=== PATIENT | male | born 1980 | race Caucasian/White ===

== ENCOUNTER 2019-12-06 15:20 | Emergency (ER) | payer OTHER, SELFPAY ==
[2019-12-06 15:20] VITALS: BP 160/88; PULSE 95; RESP 16; TEMP 37.1; O2SAT 99
--- NOTE | 2019-12-06 16:56 | ED.ANXIETY ---
HPI - Anxiety General Chief Complaint: Anxiety Stated Complaint: anxiety, panic attack Time Seen by Provider: 12/06/19 16:55 History of Present Illness HPI narrative: He has recently been diagnosed with panic attacks and took his first dose of lexapro today. Shortly after taking it he began having a panic attack. He says that he believes that it was because he has anxiety about taking medications. He reports that his psychiatrist said that he may need an anxiolytic until the lexapro takes effect. Related Data Home Medications Medication Instructions Recorded Confirmed escitalopram oxalate [Lexapro] mg 12/06/19 Allergies Allergy/AdvReac Type Severity Reaction Status Date / Time No Known Allergies Allergy Verified 12/06/19 15:38 Review of Systems Review of Systems: All systems reviewed & are unremarkable except as noted in HPI and below Constitutional: Constitutional: Denies chills and Denies fever(s) Cardiovascular: Cardiovascular: Reports chest pain Respiratory: Respiratory: Reports dyspnea Neurologic: Reports dizziness Psychiatric: Psychiatric: Reports anxiety Exam Const: General: healthy appearing, no acute distress and alert Orientation/consciousness: patient oriented x3 HENMT: Head: normal to inspection Neck: Neck: normal visual inspection and no lymphadenopathy Chest: Chest palpation & inspection: no tenderness Resp: Effort & Inspection: normal respiratory effort Auscultation: clear to auscultation bilaterally, no rales, no rhonchi and no wheezes Cardio: Jugular venous distension: no JVD Rate: regular rate Rhythm: regular rhythm Heart sounds: no murmurs GI: Inspection: non-distended GI Palp: Yes Soft to palpation and No Tenderness to palpation present (GI) Skin: General skin exam: normal color Neuro: General: patient oriented x3 and moves all extremities Speech: normal speech Extrem: General: no edema Psych: Appearance: well kempt Affect: Anxious affect present Course Vital Signs Vital signs: Vital Signs Temperature 37.1 C 12/06/19 15:20 Pulse Rate 95 12/06/19 15:20 Respiratory Rate 16 12/06/19 15:20 Blood Pressure 160/88 H 12/06/19 15:20 Pulse Oximetry 99 12/06/19 15:20 Temperature 36.6 C 12/06/19 17:24 Pulse Rate 87 12/06/19 17:24 Respiratory Rate 16 12/06/19 17:24 Blood Pressure 145/72 H 07/31/20 17:24 Pulse Oximetry 100 12/06/19 17:24 MDM - Anxiety MDM Narrative Medical decision making narrative: I will prescribe him a few days worth of a long acting benzodiazapine. Medical Records Attestation: I reviewed the patient's medical records. Lab Data Attestation: I reviewed the patient's lab results. Discharge Plan Discharge Clinical Impression: Panic attack Patient Disposition: Home, Self-Care Condition: Stable Instructions: Panic Disorder (ED) Prescriptions: New clonazepam 0.5 mg tablet 0.5 mg PO BID PRN (Reason: anxiety) Qty: 10 RF: 0 No Action escitalopram oxalate [Lexapro] 5 mg Tablet RF: 0 Follow-up/Referrals: Arnold Maldonado MD [Primary Care Provider] - Discharge Date/Time: 12/06/19 17:25
[2019-12-06 17:24] VITALS: BP 145/72; PULSE 87; RESP 16; TEMP 36.6; O2SAT 100
== END 2019-12-06 17:25 | disposition home or self-care (01) ==
PROVIDERS: Emergency Provider Emergency Medicine; PCP Emergency Medicine
DX: F41.0 Panic disorder [episodic paroxysmal anxiety] (principal)
CPT/HCPCS: 99283

== ENCOUNTER 2019-12-06 19:03 | Emergency (ER) | payer OTHER, SELFPAY ==
[2019-12-06 19:11] VITALS: BP 155/88; PULSE 99; RESP 18; TEMP 37.1; O2SAT 100
--- NOTE | 2019-12-06 19:13 | ECG_ITS ---
Measurements Intervals [place] Rate: 89 P: 74 [place]: 137 QRS: 59 QRSD: 106 T: 22 QT: 351 QTc: 427 Interpretive Statements SINUS RHYTHM POSSIBLE LEFT ATRIAL ENLARGEMENT BORDERLINE ST-T WAVE ABNORMALITY- INFERIOR LEADS BORDERLINE ECG Electronically Signed On 12-06-2019 19:28:12 CDT by Paul Williamson D.O.
[2019-12-06 19:32] VITALS: BP 127/72; PULSE 83; RESP 17; O2SAT 99
--- NOTE | 2019-12-06 20:21 | ED.ARRPALP ---
HPI - Arrhythmia/Palpitations General Chief Complaint: Arrhythmia/Palpitations Stated Complaint: anxiety Time Seen by Provider: 12/06/19 20:03 Source: patient Mode of arrival: ambulatory Limitations: no limitations History of Present Illness HPI narrative: This patient is a 39 year old male who presents for evaluation of a panic attack. He states he has been dealing with panic attacks over the past few months. He states has a sense of doom. He denies having chest pain, sob, nausea or vomiting. He was evaluated earlier today in ER and he was prescribed Klonopin. He states he has filled the prescription but he has not taken the medication. He was discharged 3 hours ago but he states he started feeling the sense that something was wrong again. He states he feels better. He denies having chest pain or sob during today's earlier visit. Related Data Home Medications Medication Instructions Recorded Confirmed escitalopram oxalate [Lexapro] mg 12/06/19 Allergies Allergy/AdvReac Type Severity Reaction Status Date / Time No Known Allergies Allergy Verified 12/06/19 19:14 Review of Systems Review of Systems: All systems reviewed & are unremarkable except as noted in HPI and below PMFSH Social History Social History (Updated 12/06/19 @ 20:27 by Jazlyn Kaplan MD) Smoking status: Current every day smoker Alcohol intake: former Alcohol use details: last drink of alcohol in June Substance use: never Gender identity (if verbalized by the patient): Male Exam Narrative: Exam Narrative: GENERAL: Well-appearing, well-nourished, and in no acute distress. HEAD: Normocephalic, atraumatic EYES: PERRLA and EOMI, conjunctiva clear without discharge EARS: TM's clear bilaterally without erythema or dullness NOSE: Nares clear, no rhinorrhea or epistaxis THROAT:Mucous membranes moist, Oropharynx normal without erythema, exudate, peritonsillar swelling or fluctuance NECK: Supple, without lymphadenopathy or mass RESPIRATORY: No respiratory distress, Airway patent, Respirations non-labored, Clear to auscultation without rales, rhonchi or wheeze HEART: Regular rate and rhythm. No murmur heard. Normal peripheral pulses. ABDOMEN: Soft, nontender, nondistended, normal active bowel sounds. No masses. No rebound or guarding, No organomegaly. EXTREMITIES: No edema, normal strength with full range of motion. SKIN: Warm, dry, normal color without rash NEURO: Alert and oriented x3. CN 2-12 grossly intact. No focal deficits. PSYCH: Normal mood and affect. Course Reevaluation(s) Reevaluation #1: I have discussed with patient I reviewed earlier visit. He states he is not having chest pain or sob so he would like to defer labs. Date: 12/06/19 Time: 20:28 Vital Signs Vital signs: Vital Signs Temperature 98.7 F 12/06/19 19:11 Pulse Rate 99 12/06/19 19:11 Respiratory Rate 18 12/06/19 19:11 Blood Pressure 155/88 H 12/06/19 19:11 Pulse Oximetry 100 12/06/19 19:11 Temperature 98.7 F 12/06/19 19:11 Pulse Rate 75 12/06/19 20:42 Respiratory Rate 17 12/06/19 20:42 Blood Pressure 119/73 12/06/19 20:42 Pulse Oximetry 97 12/06/19 20:42 MDM - Arrhythmia/Palpitations ECG Data EKG #1: ECG completion date: 12/06/19 ECG completion time: 19:22 EKG Interpretation: normal rate (89), sinus rhythm, no ST changes and NL axis Discharge Plan Discharge Clinical Impression: Panic attack Patient Disposition: Home, Self-Care Condition: Stable Instructions: Antibiotic Form, Anxiety (ED), Panic Attack (ED) Prescriptions: No Action escitalopram oxalate [Lexapro] 5 mg Tablet RF: 0 clonazepam 0.5 mg tablet 0.5 mg PO BID PRN (Reason: anxiety) Qty: 10 RF: 0 Follow-up/Referrals: Arnold Maldonado MD [Primary Care Provider] - Discharge Date/Time: 12/06/19 20:43
[2019-12-06 20:42] VITALS: BP 119/73; PULSE 75; RESP 17; O2SAT 97
== END 2019-12-06 20:43 | disposition home or self-care (01) ==
PROVIDERS: Emergency Provider General Practice; PCP Emergency Medicine
DX: F41.0 Panic disorder [episodic paroxysmal anxiety] (principal); F17.200 Nicotine dependence, unspecified, uncomplicated; R94.31 Abnormal electrocardiogram [ECG] [EKG]
CPT/HCPCS: 93005; 99283

== ENCOUNTER 2020-01-23 09:10 | Emergency (ER) | payer OTHER, SELFPAY ==
[2020-01-23 09:17] VITALS: BP 140/81; PULSE 106; RESP 20; TEMP 36.1; O2SAT 99
--- NOTE | 2020-01-23 09:22 | ECG_ITS ---
Measurements Intervals [place] Rate: 100 P: 85 SD: 135 QRS: 69 QRSD: 101 T: 5 QT: 320 QTc: 414 Interpretive Statements SINUS TACHYCARDIA POSSIBLE LEFT ATRIAL ENLARGEMENT BORDERLINE ST-T WAVE ABNORMALITY- INF/LAT LEADS BASELINE ARTIFACT- I, AVR, V1 BORDERLINE ECG Electronically Signed On 01-23-2020 10:01:14 CDT by Paul Williamson D.O.
[2020-01-23 09:31] VITALS: PULSE 101
--- NOTE | 2020-01-23 09:34 | PC.NURSE ---
ERP at bedside assessing patient.
--- NOTE | 2020-01-23 09:45 | ED.ANXIETY ---
HPI - Anxiety General Chief Complaint: Anxiety Stated Complaint: adverse rxn to meds Time Seen by Provider: 01/23/20 09:21 History of Present Illness HPI narrative: Sudden onset of racing heart rate, palpitations, chest pain, and SOB. He feels better now and believes that he was having a panic attack. He has been having them more frequently recently. He is on lexapro, recently had dose reduced. Related Data Home Medications Medication Instructions Recorded Confirmed escitalopram oxalate [Lexapro] 5 mg DAILY 12/06/19 01/23/20 Allergies Allergy/AdvReac Type Severity Reaction Status Date / Time No Known Allergies Allergy Verified 12/06/19 19:14 Review of Systems Review of Systems: All systems reviewed & are unremarkable except as noted in HPI and below Constitutional: Constitutional: Denies chills and Denies fever(s) Cardiovascular: Cardiovascular: Reports chest pain and Reports rapid heart rate Respiratory: Respiratory: Reports dyspnea Gastrointestinal: Gastrointestinal: Denies abdominal pain and Denies nausea Neurologic: Reports dizziness and Reports numbness [facility] Social History Social History (Updated 12/06/19 @ 20:27 by Jazlyn Kaplan MD) Smoking status: Current every day smoker Alcohol intake: former Substance use: never Gender identity (if verbalized by the patient): Male Exam Const: General: healthy appearing, no acute distress and alert Orientation/consciousness: patient oriented x3 HENMT: Head: normal to inspection Neck: Neck: normal visual inspection and no lymphadenopathy Chest: Chest palpation & inspection: no tenderness Resp: Effort & Inspection: normal respiratory effort Auscultation: clear to auscultation bilaterally, no rales, no rhonchi and no wheezes Cardio: Jugular venous distension: no JVD Rate: regular rate Rhythm: regular rhythm Heart sounds: no murmurs GI: Inspection: non-distended GI Palp: Yes Soft to palpation and No Tenderness to palpation present (GI) Skin: General skin exam: normal color Neuro: General: patient oriented x3 and moves all extremities Speech: normal speech Extrem: General: no edema Psych: Appearance: well kempt Affect: normal affect and Anxious affect present Course Vital Signs Vital signs: Vital Signs Temperature 36.1 C L 01/23/20 09:17 Pulse Rate 106 H 01/23/20 09:17 Respiratory Rate 20 01/23/20 09:17 Blood Pressure 140/81 01/23/20 09:17 Pulse Oximetry 99 01/23/20 09:17 Temperature 36.1 C L 01/23/20 09:17 Pulse Rate 87 01/23/20 09:51 Respiratory Rate 15 01/23/20 09:51 Blood Pressure 133/83 01/23/20 09:51 Pulse Oximetry 98 01/23/20 09:51 MDM - Anxiety MDM Narrative Medical decision making narrative: Vitals reassuring. EKG unchanged from previous. Presentation consistent with panic attack. Discharge Plan Discharge Clinical Impression: Panic disorder Patient Disposition: Home, Self-Care Condition: Stable Instructions: Panic Disorder (ED) Prescriptions: No Action escitalopram oxalate [Lexapro] 5 mg Tablet 5 mg DAILY RF: 0 clonazepam 0.5 mg tablet 0.5 mg PO BID PRN (Reason: anxiety) Qty: 10 RF: 0 Follow-up/Referrals: Arnold Maldonado MD [Primary Care Provider] - Discharge Date/Time: 01/23/20 09:52
[2020-01-23 09:51] VITALS: BP 133/83; PULSE 87; RESP 15; O2SAT 98
== END 2020-01-23 09:52 | disposition home or self-care (01) ==
PROVIDERS: Emergency Provider Emergency Medicine; PCP Emergency Medicine
DX: F41.0 Panic disorder [episodic paroxysmal anxiety] (principal); F17.200 Nicotine dependence, unspecified, uncomplicated
CPT/HCPCS: 93005; 99283

== ENCOUNTER 2020-11-11 11:17 | Emergency (ER) | payer OTHER, SELFPAY ==
[2020-11-11 11:28] VITALS: BP 140/82; PULSE 104; RESP 16; TEMP 37.3; O2SAT 99
--- NOTE | 2020-11-11 11:43 | ED.URI ---
HPI - URI/Sore Throat General Chief Complaint: Upper Respiratory Infection Stated Complaint: CONGESTION/SORE THROAT/DRAINAGE Source: patient and RN notes reviewed Limitations: no limitations History of Present Illness HPI Narrative: The vaccinated patient -- a smoker/nondrinker with pets [cats]--presents with congestion. Patient states he has about a nearly weeklong history of scratchy throat initially, then cough, sneezing and nasal congestion. His family members are ill; no sore throat now , earache, wheezing, fever measured. Symptoms mild slightly worse at night; no loss of taste/smell, CP, vomiting/diarrhea, S OB. Related Data Home Medications Medication Instructions Recorded Confirmed escitalopram oxalate [Lexapro] 5 mg DAILY 12/06/19 01/23/20 Allergies Allergy/AdvReac Type Severity Reaction Status Date / Time No Known Allergies Allergy Verified 12/06/19 19:14 Review of Systems Review of Systems: Narrative: General/Constitutional: No weight loss,fever Eyes: N0: Redness,discharge Ears/Nose/Throat: No: Epistaxis,ear discharge Respiratory: Denies: Hemoptysis Gastrointestinal: No Vomiting, Bleeding-rectal Skin: No Lumps, eruption Neurologic: No Focal Weakness,Sz Hematologic: Denies: Petechiae/Purpura Psychiatric: No: Suicida ideationl All Other Systems: Reviewed and Negative PMFSH Social History Social History (Updated 12/06/19 @ 20:27 by Jazlyn Kaplan MD) Smoking status: Current every day smoker Alcohol intake: former Alcohol use details: last drink of alcohol in June Substance use: never Gender identity (if verbalized by the patient): Male Comments At time of signature, agree with nursing past medical, surgical, social and family history. There is no relevant family history pertinent to the presenting complaint Exam Narrative: Exam Narrative: General Appearance: Well appearing, Well nourished EYE: PERRLA, Conjunctiva clear Ears: Auditory canal normal, TM normal Nose: Rhinorrhea, Mucousal erythema Mouth/Throat: MM moist, Uvula midline, Pharyngeal erythema Neck: Supple, No adenopathy Respiratory: No respiratory distress, Breath sounds equal, Clear to auscultation Cardiovascular: RRR, No JVD Musculoskeletal: Non tender, Normal strength Skin: Warm, Dry Neurological: A&O x3, CN II-XII intact Psychiatric: Normal mood, Normal affect Course Vital Signs Vital signs: Vital Signs Temperature 99.2 F 11/11/20 11:28 Pulse Rate 104 H 11/11/20 11:28 Respiratory Rate 16 11/11/20 11:28 Blood Pressure 140/82 11/11/20 11:28 Pulse Oximetry 99 11/11/20 11:28 Temperature 99.2 F 11/11/20 11:28 Pulse Rate 104 H 11/11/20 11:28 Respiratory Rate 16 11/11/20 11:28 Blood Pressure 140/82 11/11/20 11:28 Pulse Oximetry 99 11/11/20 11:28 MDM - URI/Sore Throat Lab Data Labs: Lab Results 11/11/20 Range/Units 11:24 POC SARS CoV-2 Ag Negative (Negative) Discharge Plan Discharge Clinical Impression: Upper respiratory infection Qualifiers: URI type: unspecified URI Qualified Code(s): J06.9 - Acute upper respiratory infection, unspecified Patient Disposition: Home, Self-Care Condition: Stable Instructions: Rhinosinusitis (ED) Additional Instructions: As discussed decrease escitalopram to every other day You may use OTC preparations like Flonase, antihistamines etc. for this also Prescriptions: New azithromycin 250 mg tablet See Rx Instructions .ROUTE .COMPLEX Qty: 6 RF: 0 azelastine 137 mcg (0.1 %) aerosol,spray 137 mcg NASAL Q12H Qty: 30 RF: 0 No Action escitalopram oxalate [Lexapro] 5 mg Tablet 5 mg DAILY RF: 0 clonazepam 0.5 mg tablet 0.5 mg PO BID PRN (Reason: anxiety) Qty: 10 RF: 0 Follow-up/Referrals: Arnold Maldonado MD [Primary Care Provider] - Stand Alone Forms: Work/School Release IP
== END 2020-11-11 11:55 | disposition home or self-care (01) ==
PROVIDERS: Emergency Provider Emergency Medicine; PCP Emergency Medicine
DX: J06.9 Acute upper respiratory infection, unspecified (principal); Z20.822 Contact with and (suspected) exposure to COVID-19; Z87.891 Personal history of nicotine dependence
CPT/HCPCS: 87426; 99213; C9803; G0463

== ENCOUNTER 2022-08-31 19:31 | Emergency (ER) | payer OTHER, BC, SELFPAY ==
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
[2022-08-31 19:36] VITALS: BP 149/67; PULSE 84; RESP 15; TEMP 36.1; O2SAT 100
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
== END 2022-08-31 21:18 | disposition home or self-care (01) ==
PROVIDERS: Emergency Provider Emergency Medicine; PCP Emergency Medicine
DX: S42.292A Other displaced fracture of upper end of left humerus, initial encounter for closed fracture (principal); F17.200 Nicotine dependence, unspecified, uncomplicated; V43.52XA Car driver injured in collision with other type car in traffic accident, initial encounter
CPT/HCPCS: 73060; 99284; A4565